=== PATIENT | male | born 1945 | race Caucasian/White ===

== ENCOUNTER 2020-05-19 10:08 | Emergency (ER) | payer MEDICARE, OTHER ==
[~2020-05-19] VITALS: Ht 177.8 cm; Wt 77.6 kg
[~2020-05-19 10:08] MED LIST: CARAFATE 1 GM TA1 G1 PO; HYDROCODONE-AP1 EAC6 PO; ZOFRAN ODT4 MG PO
[2020-05-19] MEDS ORDERED: ASA81BEC PO (10:43)
[2020-05-19 10:53] LABS: ABSOLUTE BASOPHILS 0.1 thou/uL (0.0-0.2); ABSOLUTE EOSINOPHILS 0.1 thou/uL (0.0-0.7); ABSOLUTE LYMPHOCYTES 0.7 thou/uL (0.8-5.3); ABSOLUTE MONOCYTES 0.6 thou/uL (0.0-1.2); ABSOLUTE NEUTROPHILS 5.7 thou/uL (1.6-8.1); BASOPHILS 1.2 %; EOSINOPHILS 1.5 %; HEMATOCRIT 48.2 % (42.0-52.0); HEMOGLOBIN 16.4 gm/dL (14.0-18.0); LYMPHOCYTES 10.2 %; MCH 30.5 pg (26.0-34.0); MCV 89.5 fL (80.0-100.0); MONOCYTES 8.4 %; MPV 8.1 fl. (7.2-11.1); NUCLEATED RBCS 0 /100WBC; PLATELET COUNT* 160 thou/uL (150-400); POLYS 78.7 %; RBC 5.38 mil/uL (4.50-6.00); RDW-CV 13.8 % (10.5-14.5); WBC 7.3 thou/uL (4.0-11.0)
[2020-05-19 11:05] LABS: APTT 26.4 Seconds (25.0-31.3); INR 1.1; PROTIME 11.3 Seconds (9.20-11.50)
[2020-05-19 11:13] LABS: CALCIUM 9.4 mg/dL (8.5-10.1); CREATININE 0.8 mg/dL (0.6-1.3); POTASSIUM 4.1 mmol/L (3.5-5.1)
[2020-05-19 11:17] LABS: ALBUMIN 3.9 g/dL (3.4-5.0); TOTAL BILIRUBIN 0.7 mg/dL (<0.1-1.0); TOTAL PROTEIN 7.2 g/dL (6.4-8.2)
[2020-05-19 14:05] VITALS: BP 142/67
--- NOTE | 2020-05-19 16:46 | EKG ---
[place] [address] ELECTROCARDIOGRAM REPORT Name: GABINO NOGUEIRA Room: [facility]#: [id number] Admission: 05/19/20 Attend Phys: Discharge: 05/19/20 Date of : 41 Date of Service: 05/19/20 1050 Report #: [id number] THIS REPORT FOR: //name// [facility] ED Test Date: 2020-05-19 Test Time: 10:50:53 Pat Name: GABINO NOGUEIRA Department: Room: Gender: [employer]: [facility] [place] 1945 Requested By: Luis Daniel Stewart Order Number: [id number] MD: Angelito Sampson Measurements Intervals [place] Rate: 49 P: 58 ME: 153 QRS: 76 QRSD: 91 T: 62 QT: 483 QTc: 437 Interpretive Statements Sinus bradycardia Atrial premature complexes in couplets Borderline repolarization abnormality No previous ECG available for comparison Electronically Signed On 05-19-2020 16:46:34 [employer] by Angelito Sampson [email or web address] <ELECTRONICALLY SIGNED> By: Angelito Sampson MD, [facility] 05/19/20 1646 1050 1050 Angelito Sampson MD, [facility] /EPI
== END 2020-05-19 13:50 | disposition short-term general hospital (02) ==
LOC: EDBD 10:08 → M.ERS 10:08
PROVIDERS: Family Medicine
DX: I63.9 Cerebral infarction, unspecified (principal); Z20.822 Contact with and (suspected) exposure to COVID-19

== ENCOUNTER → 2020-08-17 | Outpatient (CLI) | payer MEDICARE, OTHER ==
[~2020-08-17] MED LIST changes: +ASA81BEC PO
== END ==
LOC: M.CT 13:18
PROVIDERS: ATTEND Psychiatry & Neurology Neuromuscular Medicine
DX: I63.9 Cerebral infarction, unspecified (principal); Z86.79 Personal history of other diseases of the circulatory system